=== PATIENT | male | born 1985 | race Caucasian/White ===

== ENCOUNTER 2020-06-20 13:43 | Inpatient (IN) | payer MEDICARE ==
[~2020-06-20] VITALS: Ht 188 cm; Wt 71.8 kg
[2020-06-20 15:10] LABS: BASOPHILS % (AUTO) 0.6 % (0.0-2.0); EOSINOPHILS % (AUTO) 0.9 % (1.0-6.0); HEMATOCRIT 42.3 % (41-53); HEMOGLOBIN 14.5 g/dL (13.5-17.5); LYMPHOCYTES # (AUTO) 1.1 K/uL (1.0-4.8); LYMPHOCYTES % (AUTO) 10.9 % (22.0-44.0); MEAN CORPUSCULAR HEMOGLOBIN 30.4 pg (26.0-34.0); MEAN CORPUSCULAR HGB CONC 34.2 G/dL (31.0-37.0); MEAN CORPUSCULAR VOLUME 89 fL (80-100); MONOCYTES # (AUTO) 1.3 K/uL (0.1-1.0); MONOCYTES % (AUTO) 12.7 % (2.0-9.0); NEUTROPHILS # (AUTO) 7.9 K/uL (1.8-7.7); NEUTROPHILS % (AUTO) 74.9 % (40.0-70.0); PLATELET COUNT (AUTO) 262 K/uL (150-450); RED BLOOD CELL COUNT(AUTO) 4.75 MIL/uL (4.50-5.90)
[2020-06-20 15:28] LABS: ALANINE AMINOTRANSFERASE 164 U/L (12-78); ALKALINE PHOSPHATASE 90 U/L (46-116); ANION GAP 9 mmol/L (8-16); ASPARTATE AMINOTRANSFERASE 48 U/L (15-37); BILIRUBIN,TOTAL 0.5 mg/dL (0.1-1.0); CALCIUM, TOTAL 8.5 mg/dL (8.8-10.5); CARBON DIOXIDE 27 mmol/L (22-29); CHLORIDE 99 mmol/L (98-107); CREATININE 0.94 mg/dL (0.60-1.30); GLOMERULAR FILTR. RATE CALC > 60 mL/min (>60); GLUCOSE,RANDOM 99 mg/dL (70-110); SODIUM SERUM 135 mmol/L (136-145); TOTAL PROTEIN, SERUM 5.7 g/dL (6.4-8.2); UREA NITROGEN, BLOOD 11 mg/dL (7-18)
[2020-06-20 15:30] LABS: POTASSIUM 2.8 mmol/L (3.5-5.1)
[2020-06-20] MEDS ORDERED: POTASSIUM CHLORIDE 20 MEQ ER TABLET PO ONE ×2 (15:45→19:45)
[2020-06-20] MEDS ORDERED: DiphenhydrAMINE HCL 50 MG/ML VIAL ONE (15:59)
[2020-06-20] MEDS ORDERED: LORazepam 2 MG/ML VIAL ONE (15:59)
[2020-06-20] MEDS ORDERED: HALOPERIDOL LACTATE 5 MG/ML VIAL ONE (15:59)
[2020-06-20] MEDS ORDERED: MAGNESIUM SULFATE 2 GM, MVI, ADULT NO.1 WITH VIT K 10 ML, THIAMINE 100 MG, FOLIC ACID 1... IV ONE ×5 (16:00)
[2020-06-20] MEDS ORDERED: HALOPERIDOL LACTATE 5 MG/ML VIAL IM ONE (16:00)
[2020-06-20] MEDS ORDERED: LORazepam 2 MG/ML VIAL IM ONE (16:00)
[2020-06-20] MEDS ORDERED: CloZAPine 25 MG TABLET PO ONE (16:00)
[2020-06-20] MEDS ORDERED: DiphenhydrAMINE HCL 50 MG/ML VIAL IM ONE (16:00)
[2020-06-20] MEDS ORDERED: ZOLPIDEM TARTRATE 10 MG TABLET PO PRN (16:30)
[2020-06-20 17:16] LABS: COVID AG,FIA SOURCE NASOPHARYNGEAL
[2020-06-20] MEDS: BACITRACIN 28 GM OINTMENT TP SCH (20:14)
[2020-06-21 01:53] VITALS: BP 100/58
[2020-06-21] MEDS ORDERED: DOCUSATE SODIUM 100 MG CAPSULE PO PRN (07:00)
[2020-06-21] MEDS ORDERED: ONDANSETRON HCL 4 MG TABLET PO PRN (07:00)
[2020-06-21] MEDS ORDERED: MAG HYDROX/AL HYDROX/SIMETH ES 30 ML SUSPENSION UDCUP PO PRN (07:00)
[2020-06-21] MEDS ORDERED: ACETAMINOPHEN 325 MG TABLET PO PRN (07:00)
[2020-06-21] MEDS ORDERED: CloNIDine HCL 0.1 MG TABLET PO PRN (07:00)
[2020-06-21] MEDS ORDERED: GuaiFENesin/D-METHORPHAN [SUGAR-FREE] 200-20MG/10 ML SYRUP UDCUP PO PRN (07:00)
[2020-06-21] MEDS ORDERED: ALBUTEROL SULFATE HFA 90 MCG/PUFF 8 GM INHALER IH PRN (07:00)
[2020-06-21] MEDS ORDERED: PETROLATUM,WHITE 28 GM JELLY TP PRN (07:00)
[2020-06-21] MEDS ORDERED: MAGNESIUM HYDROXIDE SUSPENSION 30 ML UDCUP PO PRN (07:00)
[2020-06-21] MEDS ORDERED: NICOTINE 14 MG/24 HOUR PATCH TD PRN (07:00)
[2020-06-21 07:14] LABS: HEMOGLOBIN A1C 5.2 % (3.8-5.6)
[2020-06-21 07:29] LABS: CHOL/HDL RATIO 2.7 (4.2-7.3); FREE T4 (FREE THYROXINE) 1.43 ng/dL (0.76-1.46); POTASSIUM 3.1 mmol/L (3.5-5.1); THYROID STIMULATING HORMONE 3.32 uIU/mL (0.36-3.74)
[2020-06-21] MEDS ORDERED: POTASSIUM CHLORIDE 20 MEQ ER TABLET PO ONE (08:45)
[2020-06-21 08:50] VITALS: BP 113/75
[2020-06-21] MEDS: BACITRACIN 28 GM OINTMENT TP SCH ×2 (09:06→16:49)
[2020-06-21] MEDS: BuPROPion HCL XL 150 MG ER TABLET PO SCH (10:52)
[2020-06-21] MEDS: HALOPERIDOL 5 MG TABLET PO PRN (10:52)
[2020-06-21] MEDS: OLANZapine 5 MG TABLET PO SCH ×2 (10:52→16:49)
[2020-06-21 16:09] VITALS: BP 99/51
[2020-06-21] MEDS: CEPHALEXIN MONOHYDRATE 500 MG CAPSULE PO SCH (16:48)
[2020-06-21] MEDS: SULFAMETHOX/TRIMETH DS 800-160 MG/TABLET PO SCH (16:49)
[2020-06-21] MEDS: MAGNESIUM SULFATE 454 GM BOX TP SCH (17:14)
[2020-06-22 01:13] VITALS: BP 103/62
[2020-06-22 08:26] VITALS: BP 106/69
[2020-06-22] MEDS: LORazepam 2 MG TABLET PO PRN (08:43)
[2020-06-22] MEDS: HALOPERIDOL 5 MG TABLET PO PRN (08:43)
[2020-06-22] MEDS: CEPHALEXIN MONOHYDRATE 500 MG CAPSULE PO SCH ×3 (08:43→16:55)
[2020-06-22] MEDS: OLANZapine 5 MG TABLET PO SCH ×2 (08:43→16:55)
[2020-06-22] MEDS: BuPROPion HCL XL 150 MG ER TABLET PO SCH (08:43)
[2020-06-22] MEDS: SULFAMETHOX/TRIMETH DS 800-160 MG/TABLET PO SCH ×2 (08:43→16:55)
[2020-06-22] MEDS: MAGNESIUM SULFATE 454 GM BOX TP SCH ×2 (09:08→16:56)
[2020-06-22] MEDS: BACITRACIN 28 GM OINTMENT TP SCH ×2 (09:08→16:56)
[2020-06-22] MEDS: LOPERAMIDE HCL 2 MG CAPSULE PO PRN (14:50)
[2020-06-22] MEDS ORDERED: POTASSIUM CHLORIDE 20 MEQ ER TABLET PO ONE (15:15)
[2020-06-22 22:22] VITALS: BP 112/69
[2020-06-23 00:21] VITALS: BP 105/62
[2020-06-23] MEDS: SULFAMETHOX/TRIMETH DS 800-160 MG/TABLET PO SCH ×2 (08:05→16:26)
[2020-06-23] MEDS: CEPHALEXIN MONOHYDRATE 500 MG CAPSULE PO SCH ×3 (08:05→16:26)
[2020-06-23] MEDS: OLANZapine 5 MG TABLET PO SCH ×2 (08:06→16:26)
[2020-06-23] MEDS: BuPROPion HCL XL 150 MG ER TABLET PO SCH (08:06)
[2020-06-23] MEDS: BACITRACIN 28 GM OINTMENT TP SCH ×2 (08:06→16:27)
[2020-06-23] MEDS: MAGNESIUM SULFATE 454 GM BOX TP SCH ×2 (08:07→16:27)
[2020-06-23] MEDS: LOPERAMIDE HCL 2 MG CAPSULE PO PRN (08:14)
[2020-06-23 08:37] VITALS: BP 124/70
[2020-06-23] MEDS: IBUPROFEN 400 MG TABLET PO PRN ×2 (10:12→18:24)
[2020-06-23 16:07] VITALS: BP 104/61
[2020-06-24 05:33] VITALS: BP 118/56
[2020-06-24 08:11] VITALS: BP 129/61
[2020-06-24] MEDS: MULTIVITAMINS WITH MINERALS, THERAPEUTIC TABLET PO SCH (08:30)
[2020-06-24] MEDS: THIAMINE 100 MG TABLET PO SCH (08:30)
[2020-06-24] MEDS: FOLIC ACID 1 MG TABLET PO SCH (08:30)
[2020-06-24] MEDS: BuPROPion HCL XL 150 MG ER TABLET PO SCH (08:30)
[2020-06-24] MEDS: OLANZapine 5 MG TABLET PO SCH ×2 (08:30→16:36)
[2020-06-24] MEDS: CEPHALEXIN MONOHYDRATE 500 MG CAPSULE PO SCH ×3 (08:31→16:36)
[2020-06-24] MEDS: SULFAMETHOX/TRIMETH DS 800-160 MG/TABLET PO SCH ×2 (08:31→16:36)
[2020-06-24] MEDS: MAGNESIUM SULFATE 454 GM BOX TP SCH ×2 (08:32→16:36)
[2020-06-24] MEDS: BACITRACIN 28 GM OINTMENT TP SCH ×2 (08:35→16:36)
[2020-06-24] MEDS: IBUPROFEN 400 MG TABLET PO PRN (09:07)
[2020-06-24 16:17] VITALS: BP 115/66
[2020-06-25 08:37] VITALS: BP 128/69
[2020-06-25] MEDS: SULFAMETHOX/TRIMETH DS 800-160 MG/TABLET PO SCH ×2 (08:37→16:39)
[2020-06-25] MEDS: CEPHALEXIN MONOHYDRATE 500 MG CAPSULE PO SCH ×3 (08:37→16:39)
[2020-06-25] MEDS: MULTIVITAMINS WITH MINERALS, THERAPEUTIC TABLET PO SCH (08:38)
[2020-06-25] MEDS: BuPROPion HCL XL 150 MG ER TABLET PO SCH (08:38)
[2020-06-25] MEDS: FOLIC ACID 1 MG TABLET PO SCH (08:38)
[2020-06-25] MEDS: OLANZapine 5 MG TABLET PO SCH ×2 (08:38→16:40)
[2020-06-25] MEDS: THIAMINE 100 MG TABLET PO SCH (08:42)
[2020-06-25] MEDS: MAGNESIUM SULFATE 454 GM BOX TP SCH ×2 (09:00→17:00)
[2020-06-25] MEDS: BACITRACIN 28 GM OINTMENT TP SCH ×2 (09:00→17:00)
[2020-06-25] MEDS ORDERED: OLAN5TAB2 PO (09:37)
[2020-06-25] MEDS ORDERED: BUPR-93 PO (09:38)
[2020-06-25] MEDS ORDERED: CEPH500C3 PO (09:40)
[2020-06-25] MEDS ORDERED: SULF1TAB PO (09:45)
[2020-06-25] MEDS: LORazepam 2 MG TABLET PO PRN (15:14)
== END 2020-06-26 07:15 | disposition home or self-care (01) | DRG 885 ==
LOC: EDBD 13:43 → EMS 13:43 → B2X 16:47
PROVIDERS: ADMIT Psychiatry & Neurology Psychiatry; ATTEND Psychiatry & Neurology Psychiatry
DX: F20.9 Schizophrenia, unspecified (principal); E87.6 Hypokalemia; F10.10 Alcohol abuse, uncomplicated; Y90.9 Presence of alcohol in blood, level not specified; F19.10 Other psychoactive substance abuse, uncomplicated; Z20.822 Contact with and (suspected) exposure to COVID-19; Z59.0 Homelessness; Z81.8 Family history of other mental and behavioral disorders; Z91.19 Patient's noncompliance with other medical treatment and regimen; Z91.410 Personal history of adult physical and sexual abuse
CPT/HCPCS: 80053; 80061; 83036; 84132; 84439; 84443; 85025; 87426; 99285; G0480; J1200; J1630; J2060; J3411; J3475; J3490; J7030